=== PATIENT | male | born 1995 | race Caucasian/White ===

== ENCOUNTER 2023-01-27 20:21 | Emergency (ER) | payer SELFPAY ==
[~2023-01-27] VITALS: Ht 170.2 cm; Wt 61.0 kg
[2023-01-27] MEDS ORDERED: ACETAMINOPHEN 500 MG TABLET PO ONE (21:15)
[2023-01-27] MEDS ORDERED: BACITRACIN 0.9 GM PACKET OINTMENT TP ONE (21:15)
[2023-01-27] MEDS ORDERED: PERTUSS(ACELL),DIPH,TET VAC/PF 0.5 ML SYRINGE IM. ONE (21:15)
[2023-01-27 22:17] VITALS: BP 109/83
== END 2023-01-27 23:23 | disposition home or self-care (01) ==
LOC: EMS 20:21
DX: S00.01XA Abrasion of scalp, initial encounter (principal); F90.9 Attention-deficit hyperactivity disorder, unspecified type; F17.210 Nicotine dependence, cigarettes, uncomplicated; F12.90 Cannabis use, unspecified, uncomplicated; F15.90 Other stimulant use, unspecified, uncomplicated; Y08.09XA Assault by strike by other specified type of sport equipment, initial encounter; Y93.89 Activity, other specified; Y92.89 Other specified places as the place of occurrence of the external cause; Y99.8 Other external cause status
CPT/HCPCS: 70450; 72125; 90471; 90715; 99285

== ENCOUNTER 2023-07-17 07:37 | Emergency (ER) | payer SELFPAY ==
[~2023-07-17] VITALS: Ht 177.8 cm; Wt 68.2 kg
[2023-07-17 07:40] VITALS: TEMP 98
[2023-07-17] MEDS ORDERED: ACETAMINOPHEN 500 MG TABLET PO ONE (08:30)
[2023-07-17] MEDS ORDERED: PERTUSS(ACELL),DIPH,TET VAC/PF 0.5 ML SYRINGE IM. ONE (08:30)
[2023-07-17] MEDS ORDERED: AMOX TR/POT CLAV 875 MG/125 MG TABLET PO ONE (08:30)
[2023-07-17] MEDS ORDERED: AMOX1TAB16 PO (08:40)
[2023-07-17 09:01] VITALS: BP 123/75; PULSE 98; RESP 18
[2023-07-18] MEDS ORDERED: METH-530 PO (11:25)
[2023-07-18] MEDS ORDERED: IBUP-1492 PO (11:52)
== END 2023-07-17 09:04 | disposition home or self-care (01) ==
LOC: EMS 07:39
DX: S69.91XA Unspecified injury of right wrist, hand and finger(s), initial encounter (principal); F15.90 Other stimulant use, unspecified, uncomplicated; F12.929 Cannabis use, unspecified with intoxication, unspecified; F17.210 Nicotine dependence, cigarettes, uncomplicated; X58.XXXA Exposure to other specified factors, initial encounter; Y93.89 Activity, other specified; Y92.89 Other specified places as the place of occurrence of the external cause; Y99.8 Other external cause status
CPT/HCPCS: 90471; 90715; 99283

== ENCOUNTER 2023-07-18 11:22 | Emergency (ER) | payer MEDICAID ==
[~2023-07-18] VITALS: Ht 172.7 cm; Wt 56.8 kg
[~2023-07-18 11:22] MED LIST: AMOX1TAB16 PO
[2023-07-18] MEDS ORDERED: METH-530 PO (11:25)
[2023-07-18 11:32] VITALS: TEMP 98.1
[2023-07-18 11:42] VITALS: BP 136/84; PULSE 96; RESP 16
[2023-07-18] MEDS ORDERED: IBUP-1492 PO (11:52)
[2023-07-18] MEDS ORDERED: IBUPROFEN 600 MG TABLET PO ONE (12:00)
== END 2023-07-18 12:44 | disposition home or self-care (01) ==
LOC: EMS 11:33
DX: S60.921D Unspecified superficial injury of right hand, subsequent encounter (principal); F90.9 Attention-deficit hyperactivity disorder, unspecified type; F17.210 Nicotine dependence, cigarettes, uncomplicated; F12.90 Cannabis use, unspecified, uncomplicated; F15.90 Other stimulant use, unspecified, uncomplicated; X58.XXXD Exposure to other specified factors, subsequent encounter
CPT/HCPCS: 99282; Z7502; Z7610